=== PATIENT | male | born 2000 | race Caucasian/White ===

== ENCOUNTER 2020-08-24 07:44 | Emergency (ER) | payer OTHER ==
[2020-08-24] MEDS ORDERED: Ibuprofen 400 MG Tab PO ONE (07:52)
[2020-08-24] MEDS ORDERED: Sodium Chloride 0.9% 2.5 ML Syringe FLUSH PRN (07:52)
[2020-08-24] MEDS ORDERED: Sodium Chloride 0.9% 10 ML Syringe FLUSH PRN (07:52)
[2020-08-24] MEDS ORDERED: Acetaminophen 500 MG Tab PO ONE (07:52)
[2020-08-24] MEDS ORDERED: Lidocaine 5% 700 MG Patch TOP ONE (07:54)
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
[2020-08-24 08:28] LABS: BLOOD UREA NITROGEN,BUN 17 mg/dL (7.0-18.0); CARBON DIOXIDE,CO2 26.4 mmol/L (21.0-32.0); CHLORIDE,CL 104 mmol/L (98-107); GLUCOSE RANDOM 141 mg/dL (74-106); LIPASE 71 U/L (73-393); POTASSIUM,K 3.5 mmol/L (3.5-5.1); SODIUM,NA 141 mmol/L (136-148)
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
== END 2020-08-24 09:45 | disposition home or self-care (01) ==
LOC: MW.ED 07:45
DX: M54.5 Low back pain (principal); M54.6 Pain in thoracic spine; Z88.5 Allergy status to narcotic agent; V59.40XA Driver of pick-up truck or van injured in collision with unspecified motor vehicles in traffic accident, initial encounter
CPT/HCPCS: 36415; 71045; 72128; 72131; 72170; 80053; 83690; 84484; 85025; 99284; A9270